=== PATIENT | male | born 1970 | race American Indian/Alaskan Native ===

== ENCOUNTER 2020-09-20 04:04 | Emergency (ER) | payer SELFPAY ==
--- NOTE | 2020-09-20 04:30 | Emergency Department Report ---
ED Allergic Reaction HPI - General Stated complaint: BODY ITCHY ALL OVER - History of Present Illness Initial Comments: Patient is a 50-year-old -[place]is[place] male with no past medical history presents to the ED with complaint of acute onset persistent diffuse itchy erythematous maculopapular urticarial rashes for the last 2 days with no known etiology. Patient states that the only new thing that he has used at home is a new fragrance soap that he bought at the store and which he last used about 4 days ago. Patient states that the itching is intermittent and gets worse whenever he takes a shower. Patient denies swollen lips or tongue, shortness of breath, fever, chills, nausea and vomiting, abdominal pain, chest pain, swollen face, change in vision, dysuria, urinary frequency and urgency or diarrhea. MD Complaint: allergic reaction, hives, other (Itching diffusely) -: Sudden, days(s) (2) Exposure: unknown Symptoms: rash, itching. denies: facial swelling, lip swelling, difficulty swallowing, difficulty breathing, orolingual swelling, hoarseness, syncopy, dizziness, nausea, vomiting, abdominal pain Severity: moderate Treatment Prior to Arrival: none Previous Allergy History: none - Related Data Previous Rx's Medication Instructions Recorded Last Taken Type Famotidine [Pepcid] 20 mg PO BID #30 tablet 09/20/20 Unknown Rx diphenhydrAMINE [Benadryl CAP] 50 mg PO Q8HR PRN #30 capsule 09/20/20 Unknown Rx predniSONE [Deltasone] 40 mg PO QDAY #15 tab 09/20/20 Unknown Rx Allergies Allergy/AdvReac Type Severity Reaction Status Date / Time No Known Allergies Allergy Unverified 09/20/20 05:00 ED Review of Systems ROS: Stated complaint: BODY ITCHY ALL OVER Other details as noted in HPI Constitutional: denies: chills, fever Eyes: denies: eye pain, eye discharge, vision change ENT: denies: ear pain, throat pain Respiratory: denies: cough, shortness of breath, wheezing Cardiovascular: denies: chest pain, palpitations Endocrine: no symptoms reported Gastrointestinal: denies: abdominal pain, nausea, diarrhea Genitourinary: denies: urgency, dysuria Musculoskeletal: denies: back pain, joint swelling, arthralgia Skin: rash (diffuse itchy erythematous urticarial rashes), change in color, pruritus. denies: lesions Neurological: denies: headache, weakness, paresthesias Psychiatric: denies: anxiety, depression Hematological/Lymphatic: denies: easy bleeding, easy bruising ED Past Medical Hx - Medications Home Medications: Home Medications Medication Instructions Recorded Confirmed Last Taken Type Famotidine [Pepcid] 20 mg PO BID #30 tablet 09/20/20 Unknown Rx diphenhydrAMINE [Benadryl CAP] 50 mg PO Q8HR PRN #30 capsule 09/20/20 Unknown Rx predniSONE [Deltasone] 40 mg PO QDAY #15 tab 09/20/20 Unknown Rx ED Physical Exam - General General appearance: alert, in no apparent distress - Head Head exam: Present: atraumatic, normocephalic, normal inspection - Eye Eye exam: Present: normal appearance, PERRL, EOMI Pupils: Present: normal accommodation - ENT ENT exam: Present: normal exam, normal orophraynx, mucous membranes moist, TM's normal bilaterally, normal external ear exam - Neck Neck exam: Present: normal inspection, full ROM - Respiratory Respiratory exam: Present: normal lung sounds bilaterally. Absent: respiratory distress, wheezes, rales, rhonchi, chest wall tenderness, accessory muscle use, prolonged expiratory, other - Cardiovascular Cardiovascular Exam: Present: regular rate, normal rhythm, normal heart sounds. Absent: systolic murmur, diastolic murmur, rubs, gallop - GI/Abdominal GI/Abdominal exam: Present: soft, normal bowel sounds. Absent: tenderness, guarding, hyperactive bowel sounds, hypoactive bowel sounds, organomegaly - Extremities Exam Extremities exam: Present: normal inspection, full ROM, normal capillary refill - Back Exam Back exam: Present: normal inspection, full ROM. Absent: tenderness, CVA tenderness (R), CVA tenderness (L), muscle spasm, paraspinal tenderness, vertebral tenderness - Neurological Exam Neurological exam: Present: alert, oriented X3, CN II-XII intact, normal gait, reflexes normal - Psychiatric Psychiatric exam: Present: normal affect, normal mood - Skin Skin exam: Present: warm, dry, intact, rash (diffuse itchy erythematous maculopapular ), erythema, urticaria ED Course Vital Signs 09/20/20 04:55 Temperature 98.4 F Pulse Rate 65 Respiratory 18 Rate Blood Pressure 142/78 O2 Sat by Pulse 95 Oximetry ED Medical Decision Making - Medical Decision Making This is a 50-year-old -[place] male with no past medical history presents to the ED with complaint of acute onset persistent diffuse itchy erythematous maculopapular urticarial rashes for the last 2 days with no known etiology. Patient states that the only new thing that he has used at home is a new fragrance soap that he bought at the store and which he last used about 4 days ago. Patient states that the itching is intermittent and gets worse whenever he takes a shower. In the ED, patient is alert and oriented x3 and is not in distress. Patient was treated in the ED for acute allergic reaction with oral steroids, Pepcid and Benadryl. On reevaluation, patient's itching resolved with medications. Patient was therefore discharged home on prescriptions of steroid and Benadryl as well as Pepcid and was advised to follow-up with his primary care physician in 5 to 7 days for reevaluation or return to the ED immediately if symptoms get worse. - Differential Diagnosis Acute urticaria; acute allergic reaction; irritant dermatitis; insect bite Critical care attestation.: If time is entered above; I have spent that time in minutes in the direct care of this critically ill patient, excluding procedure time. ED Disposition Clinical Impression: Itching with irritation, Acute urticaria Acute allergic reaction Qualifiers: Encounter type: initial encounter Qualified Code(s): T78.40XA - Allergy, unspecified, initial encounter Disposition: DC-01 TO HOME OR SELFCARE Is pt being admited?: No Does the pt Need Aspirin: No Condition: Stable Instructions: Allergies, Adult, [id number], Hives, [id number], Rash, Adult, [id number] Additional Instructions: Take medication with food, drink plenty of fluids and follow up with your primary care physician in 7-10 days for reevaluation. Return to the ED immediately if symptoms get worse. Prescriptions: diphenhydrAMINE [Benadryl CAP] 50 mg PO Q8HR PRN #30 capsule PRN Reason: Itching predniSONE [Deltasone] 40 mg PO QDAY #15 tab Famotidine [Pepcid] 20 mg PO BID #30 tablet Referrals: [facility] [Provider Group] - 3-5 Days Forms: Work/School Release Form(ED) Time of Disposition: 04:31 Print Language: SETSWANA
[2020-09-20] MEDS ORDERED: predniSONE 20 MG TAB PO ONE (04:38)
[2020-09-20] MEDS ORDERED: diphenhydrAMINE 25 MG CAP PO ONE (04:38)
[2020-09-20] MEDS ORDERED: FAMOTIDINE 20 MG TAB PO ONE (04:39)
[2020-09-20 05:00] VITALS: BP 142/78
== END 2020-09-20 06:07 | disposition home or self-care (01) ==
LOC: ED 04:04
DX: L50.9 Urticaria, unspecified (principal); T78.40XA Allergy, unspecified, initial encounter; Z79.899 Other long term (current) drug therapy
CPT/HCPCS: 99282; J7512

== ENCOUNTER 2020-09-28 02:16 | Emergency (ER) | payer SELFPAY ==
[2020-09-28 04:03] VITALS: BP 106/73
[2020-09-28 04:53] LABS: Basophils % (Auto) 0.3 % (0.0-1.8); Eosinophils % (Auto) 0.2 % (0.0-4.3); Hematocrit 45.5 % (35.5-45.6); Hemoglobin 15.2 gm/dl (11.8-15.2); Lymphocytes # (Auto) 0.6 K/mm3 (1.2-5.4); Lymphocytes % (Auto) 5.5 % (13.4-35.0); Mean Corpuscular HGB Conc 33 % (32-34); Mean Corpuscular Volume 88 fl (84-94); Monocytes % (Auto) 9.2 % (0.0-7.3); Platelet Count 215 K/mm3 (140-440); Red Blood Count 5.19 M/mm3 (3.65-5.03); Red Cell Distribution Width 14.2 % (13.2-15.2)
[2020-09-28 05:18] LABS: Alanine Aminotransferase 42 units/L (7-56); Albumin 5.1 g/dL (3.9-5); BUN/Creatinine Ratio 13; Blood Urea Nitrogen 13 mg/dL (9-20); Calcium 9.9 mg/dL (8.4-10.2); Hemolysis Index 2
--- NOTE | 2020-09-28 06:41 | Emergency Department Report ---
ED General Adult HPI - General Chief complaint: Abdominal Pain Stated complaint: VOMITING;DIZZINESS;DIARRHEA Time Seen by Provider: 09/28/20 04:14 Source: patient Mode of arrival: Ambulatory Limitations: No Limitations - History of Present Illness Initial comments: 50-year-old [place] male presents emerged department complaining of occasional rash off and on since his last visit with emergency department. States he was seen here in emergency department for allergic reaction and was treated with Pepcid and prednisone which she states does help the rash when present but when the rash of the rash begins to return. He states he is also has developed some diarrhea since starting the medications want to be sure of things okay because he has had several loose bowel movements Severity scale (0 -10): 0 - Related Data Previous Rx's Medication Instructions Recorded Last Taken Type Famotidine [Pepcid] 20 mg PO BID #30 tablet 09/20/20 Unknown Rx diphenhydrAMINE [Benadryl CAP] 50 mg PO Q8HR PRN #30 capsule 09/20/20 Unknown Rx predniSONE [Deltasone] 40 mg PO QDAY #15 tab 09/20/20 Unknown Rx Hyoscyamine Subl [Levsin Sl 0.125 0.125 mg SL Q6HR PRN #20 tab 09/28/20 Unknown Rx TAB] Allergies Allergy/AdvReac Type Severity Reaction Status Date / Time No Known Allergies Allergy Unverified 09/20/20 05:00 ED Review of Systems ROS: Stated complaint: VOMITING;DIZZINESS;DIARRHEA Other details as noted in HPI Comment: All other systems reviewed and negative ED Past Medical Hx - Past Medical History Previous Medical History?: No - Surgical History Past Surgical History?: No - Social History Smoking Status: Never Smoker Substance Use Type: None - Medications Home Medications: Home Medications Medication Instructions Recorded Confirmed Last Taken Type Famotidine [Pepcid] 20 mg PO BID #30 tablet 09/20/20 Unknown Rx diphenhydrAMINE [Benadryl CAP] 50 mg PO Q8HR PRN #30 capsule 09/20/20 Unknown Rx predniSONE [Deltasone] 40 mg PO QDAY #15 tab 09/20/20 Unknown Rx Hyoscyamine Subl [Levsin Sl 0.125 0.125 mg SL Q6HR PRN #20 tab 09/28/20 Unknown Rx TAB] ED Physical Exam - General Limitations: No Limitations General appearance: alert, in no apparent distress - Head Head exam: Present: atraumatic, normocephalic - Eye Eye exam: Present: normal appearance, PERRL, EOMI Pupils: Present: normal accommodation - ENT ENT exam: Present: normal exam, mucous membranes moist, TM's normal bilaterally - Neck Neck exam: Present: normal inspection, full ROM - Respiratory Respiratory exam: Present: normal lung sounds bilaterally. Absent: respiratory distress, wheezes, rales, chest wall tenderness, accessory muscle use - Cardiovascular Cardiovascular Exam: Present: regular rate, normal rhythm. Absent: systolic murmur, diastolic murmur, rubs, gallop - GI/Abdominal GI/Abdominal exam: Present: soft, normal bowel sounds. Absent: distended, tend erness, hypoactive bowel sounds, organomegaly - Rectal Rectal exam: Present: deferred - Extremities Exam Extremities exam: Present: normal inspection, tenderness, normal capillary refill - Back Exam Back exam: Present: normal inspection. Absent: CVA tenderness (R), CVA tenderness (L) - Neurological Exam Neurological exam: Present: alert, oriented X3, CN II-XII intact, normal gait - Psychiatric Psychiatric exam: Present: normal affect, normal mood. Absent: anxious, flat affect, suicidal ideation - Skin Skin exam: Present: warm, dry, intact, normal color. Absent: rash, diaphoretic, erythema, urticaria (No active hives), petechiae, pallor, abrasion ED Course Vital Signs 09/28/20 03:54 Temperature 98.3 F Pulse Rate 77 Respiratory 18 Rate Blood Pressure 106/73 O2 Sat by Pulse 93 Oximetry ED Medical Decision Making - Lab Data Result diagrams: 09/28/20 04:18 09/28/20 04:18 Critical care attestation.: If time is entered above; I have spent that time in minutes in the direct care of this critically ill patient, excluding procedure time. ED Disposition Clinical Impression: Diarrhea Disposition: DC- TO HOME OR SELFCARE Is pt being admited?: No Does the pt Need Aspirin: No Condition: Stable Instructions: Diarrhea, Adult, Food Choices to Help Relieve Diarrhea, Adult, Rotavirus Infection, Adult, Diarrhea, Adult, [id number] Additional Instructions: Continue your previous medication for the allergic reaction Prescriptions: Hyoscyamine Subl [Levsin Sl 0.125 TAB] 0.125 mg SL Q6HR PRN #20 tab PRN Reason: abd cramping Referrals: PRIMARY CAREMD [Primary Care Provider] - 3-5 Days SATNAM ALVAREZ MD [Staff Physician] - 3-5 Days
== END 2020-09-28 06:31 | disposition home or self-care (01) ==
LOC: ED 02:16
DX: R19.7 Diarrhea, unspecified (principal); Z79.899 Other long term (current) drug therapy
CPT/HCPCS: 36415; 80053; 83690; 85025